=== PATIENT | male | born 1990 | race Caucasian/White ===

== ENCOUNTER 2023-11-24 09:51 | Emergency (ER) | payer MEDICAID ==
[~2023-11-24] VITALS: Ht 160 cm; Wt 93.0 kg
[2023-11-24 10:10] VITALS: BP 125/69; PULSE 85; RESP 18; O2SAT 99
[2023-11-24] MEDS ORDERED: ACETAMINOPHEN 325MG TABLET PO ONE (10:30)
[2023-11-24 10:36] VITALS: TEMP 98.9
== END 2023-11-24 13:48 | disposition home or self-care (01) ==
LOC: ER 09:51
DX: S83.92XA Sprain of unspecified site of left knee, initial encounter (principal); W01.0XXA Fall on same level from slipping, tripping and stumbling without subsequent striking against object, initial encounter; Y93.01 Activity, walking, marching and hiking; Y92.89 Other specified places as the place of occurrence of the external cause; Y99.8 Other external cause status
CPT/HCPCS: 29505; 73560; 73590; 73600; 99284